=== PATIENT | female | born 1945 | race Two or more races ===

== ENCOUNTER 2017-10-31 23:35 | Inpatient (IN) | payer MEDICARE, OTHER ==
[~2017-10-31] VITALS: Ht 154.9 cm; Wt 67.3 kg
[2017-11-01] MEDS ORDERED: SODIUM CHLORIDE FLUSH 10ML SYR IVF ONE
[2017-11-01] MEDS ORDERED: SODIUM CHLORIDE 0.9% 1,000ML IVBOLUS ONE
[2017-11-01 00:26] LABS: BASOPHILS # (AUTO) 0.05 x10^3/uL (0-0.1); BASOPHILS % (AUTO) 1 % (0-1); EOSINOPHILS % (AUTO) 2 % (1-7); LYMPHOCYTES # (AUTO) 1.28 x10^3/uL (1-3.4); LYMPHOCYTES % (AUTO) 20 % (22-44); MD NO; MEAN CORPUSCULAR HEMOGLOBIN 31.7 pg (27.0-34.8); MEAN CORPUSCULAR HGB CONC 34.3 g/dL (32.4-35.8); MEAN CORPUSCULAR VOLUME 92.5 fL (80-100); MEAN PLATELET VOLUME 7.6 fL (7.4-10.4); MONOCYTES # (AUTO) 0.33 x10^3/uL (0.2-0.8); MONOCYTES % (AUTO) 5 % (2-9); NEUTROPHILS # (AUTO) 4.53 x10^3/uL (1.8-6.8); NEUTROPHILS % (AUTO) 72 % (42-75); PLATELET COUNT 212 x10^3/uL (130-400); RED BLOOD COUNT 4.07 x10^6/uL (3.82-5.3); RED CELL DISTRIBUTION WIDTH 13.6 % (9.6-15.2)
[2017-11-01 00:37] LABS: ALANINE AMINOTRANSFERASE 29 U/L (12-78); ALBUMIN 3.9 g/dL (3.4-5.0); ANION GAP 9 mmol/L (5-15); CALCIUM 9.1 mg/dL (8.5-10.1); CHLORIDE 110 mmol/L (98-107); CREATININE 0.89 mg/dL (0.55-1.02)
[2017-11-01 00:39] LABS: ALKALINE PHOSPHATASE 110 U/L (45-117); BILIRUBIN,TOTAL 0.4 mg/dL (0.2-1.0); TOTAL PROTEIN 7.6 g/dL (6.4-8.2)
[2017-11-01 00:40] LABS: INTERNATIONAL NORMALIZED RATIO 0.92 (0.93-1.1); PROTHROMBIN TIME 9.6 Seconds (9.6-11.5)
[2017-11-01] MEDS ORDERED: LORazepam 2 MG/ML, 1ML IVPush ONE (01:30)
[2017-11-01] MEDS ORDERED: ONDANSETRON 2MG/ML, 2ML IVPush ONE (01:30)
[2017-11-01] MEDS ORDERED: FURO20TA3 PO (01:54)
[2017-11-01] MEDS ORDERED: LISI-167 PO (01:54)
[2017-11-01] MEDS ORDERED: ATEN25TA PO (01:54)
[2017-11-01] MEDS ORDERED: SIMV20TA3 PO (01:54)
[2017-11-01] MEDS ORDERED: LORazepam 2 MG/ML, 1ML ONE (03:59)
[2017-11-01 04:35] VITALS: BP 145/68
[2017-11-01] MEDS ORDERED: SODIUM CHLORIDE 0.9% 1,000 ML IV SCH (05:18)
[2017-11-01] MEDS ORDERED: POLYETHYLENE GLYCOL 17 GM PACKET PO PRN (05:30)
[2017-11-01] MEDS ORDERED: hydrALAzine 20 MG/ML, 1ML IVPush PRN (05:30)
[2017-11-01] MEDS ORDERED: PROMETHAZINE 25 MG/ML, 1ML IM PRN (05:30)
[2017-11-01] MEDS ORDERED: ONDANSETRON 2MG/ML, 2ML IVPush PRN (05:30)
[2017-11-01] MEDS ORDERED: morphine SULFATE 10 MG/ML, 1ML IVPush PRN (05:30)
[2017-11-01] MEDS ORDERED: ONDANSETRON ODT 4 MG PO PRN (05:30)
[2017-11-01] MEDS ORDERED: OXYcodone IR 5MG TABLET PO PRN (05:30)
[2017-11-01] MEDS ORDERED: DOCUSATE 100 MG CAPSULE PO PRN (05:30)
[2017-11-01] MEDS ORDERED: ACETAMINOPHEN 325 MG TABLET PO PRN (05:30)
[2017-11-01] MEDS ORDERED: BISACODYL 10 MG SUPP PR PRN (05:30)
[2017-11-01] MEDS ORDERED: OMNIPAQUE 350 MG/ML, 100ML BOTTLE ONE (06:24)
[2017-11-01 06:48] LABS: FREE T4 (FREE THYROXINE) 1.19 ng/dL (0.76-1.46); THYROID STIMULATING HORMONE 6.72 mIU/L (0.358-3.740)
[2017-11-01 06:51] LABS: HEMOGLOBIN A1C 5.6 % (4.2-6.3)
[2017-11-01 07:19] VITALS: BP 129/75
[2017-11-01] MEDS ORDERED: LISINOPRIL 10 MG TABLET PO SCH (09:00)
[2017-11-01] MEDS ORDERED: ATENOLOL 50 MG TABLET PO SCH (09:00)
[2017-11-01 09:54] LABS: CULTURE INDICATED? YES; MICROSCOPIC AUTO
[2017-11-01] MEDS ORDERED: CEFD300C37 PO (12:50)
[2017-11-01] MEDS ORDERED: CEFDINIR 300 MG CAPSULE PO ONE (13:00)
[2017-11-01] MEDS ORDERED: SIMVASTATIN 20 MG TABLET PO SCH (21:00)
== END 2017-11-01 13:15 | disposition home or self-care (01) | DRG 378 ==
LOC: ED 23:59 → EDIP 11-01 03:35 → 3NE 11-01 04:23
PROVIDERS: ADMIT Internal Medicine; ATTEND Internal Medicine
PROC: 0DJD8ZZ Inspection of Lower Intestinal Tract, Via Natural or Artificial Opening Endoscopic (ICD-10-PCS; principal; 2017-11-01)
DX: K57.31 Diverticulosis of large intestine without perforation or abscess with bleeding (principal); N39.0 Urinary tract infection, site not specified; E11.9 Type 2 diabetes mellitus without complications; E78.5 Hyperlipidemia, unspecified; I10 Essential (primary) hypertension; K64.4 Residual hemorrhoidal skin tags; M48.02 Spinal stenosis, cervical region; Z87.891 Personal history of nicotine dependence
CPT/HCPCS: 36415; 74174; 80053; 81001; 83036; 83690; 83735; 84439; 84443; 85025; 85610; 85730; 87086; 93005; 96374; 99285; Q9967; J2060; J7030